=== PATIENT | female | born 1970 | race Caucasian/White ===

== ENCOUNTER 2020-12-06 14:08 | Emergency (ER) | payer OTHER ==
[2020-12-06 14:30] VITALS: BP 141/77; PULSE 95; RESP 18; TEMP 98.3
[2020-12-06] MEDS ORDERED: AMOXICILLIN 875 MG TAB PO STA (15:09)
--- NOTE | 2020-12-06 15:31 | ED ---
ENT HPI - General Chief complaint: ENT Stated complaint: Sore throat Time Seen by Provider: 12/06/20 14:40 Source: patient Mode of arrival: ambulatory Limitations: no limitations - History of Present Illness Initial comments: 50-year-old female with history of strep pharyngitis presents to emergency with a chief complaint of strep throat. Patient reports symptoms been on for the past several days and she noticed white patches on her tonsils. Patient reports this feels occurred typical strep pharyngitis. She denies any cough with report feeling chilly but did not obtain an temperature. She reports odynophagia but denies any dysphagia. Does report a large lymph nodes but denies significant seven-day regular or submental swelling. Denies chest pain shortness of breath. - Related Data Previous Rx's Medication Instructions Recorded Amoxicillin 875 mg PO Q12HR #20 tablet 12/06/20 Allergies Allergy/AdvReac Type Severity Reaction Status Date / Time acetaminophen Allergy Unknown Verified 12/06/20 14:30 [From Darvocet-N] codeine Allergy Unknown Verified 12/06/20 14:30 ofloxacin [From Floxin] Allergy Unknown Verified 12/06/20 14:30 propoxyphene Allergy Unknown Verified 12/06/20 14:30 [From Darvocet-N] Review of Systems ROS Statement: Those systems with pertinent positive or pertinent negative responses have been documented in the HPI. ROS Other: All systems not noted in ROS Statement are negative. Past Medical History Past Medical History: Asthma History of Any Multi-Drug Resistant Organisms: None Reported Past Surgical History: Cholecystectomy Past Psychological History: Depression Smoking Status: Current every day smoker Past Alcohol Use History: None Reported Past Drug Use History: None Reported General Exam Limitations: no limitations General appearance: alert, in no apparent distress Head exam: Present: atraumatic, normocephalic, normal inspection Eye exam: Present: normal appearance, PERRL, EOMI Pupils: Present: normal accommodation ENT exam: Present: normal exam, mucous membranes moist, TM's normal bilaterally, normal external ear exam. Absent: normal oropharynx (Bilateral tonsillar exudates. Uvula midline. No signs of a peritonsillar abscess.) Neck exam: Present: normal inspection, full ROM, lymphadenopathy (Anterior cervical bilaterally). Absent: tenderness Respiratory exam: Present: normal lung sounds bilaterally. Absent: respiratory distress, wheezes, rales Cardiovascular Exam: Present: regular rate, normal rhythm, normal heart sounds. Absent: systolic murmur Extremities exam: Present: normal inspection, full ROM, normal capillary refill. Absent: tenderness Back exam: Present: normal inspection, full ROM. Absent: tenderness, CVA tenderness (R), CVA tenderness (L) Neurological exam: Present: alert, oriented X3 Psychiatric exam: Present: normal affect, normal mood Skin exam: Present: warm, dry, intact, normal color Course Vital Signs 12/06/20 14:27 Temperature 98.3 F Pulse Rate 95 Respiratory 18 Rate Blood Pressure 141/77 O2 Sat by Pulse 98 Oximetry Medical Decision Making - Medical Decision Making 50-year-old female history of strep pharyngitis present to the emergency department with a chief complaint of strep throat. Physical examination, bilateral enlarged tonsils. No cough but chills. Anterior cervical lymph nodes. Rapid strep negative. We'll treat based on clinical suspicion. Gave amoxicillin here. Will be discharged with 10 day course of amoxicillin. Return parameters discussed the patient was attending and agreeable. Case discussed with - Lab Data Lab Results 12/06/20 Range/Units 15:27 Group A Strep Rapid Negative (Negative) Disposition Clinical Impression: Pharyngitis Disposition: HOME SELF-CARE Condition: Stable Instructions (If sedation given, give patient instructions): Pharyngitis (ED) Additional Instructions: take prescribed medication as directed. Follow-up with primary care physician. Return to emergency department if symptoms worsen. Prescriptions: Amoxicillin 875 mg PO Q12HR #20 tablet Is patient prescribed a controlled substance at d/c from ED?: No Referrals: Yuliya Wong MD [Primary Care Provider] - 1-2 days Time of Disposition: 15:48
== END 2020-12-06 16:00 | disposition home or self-care (01) ==
LOC: EC 14:08
DX: J02.9 Acute pharyngitis, unspecified (principal); J45.909 Unspecified asthma, uncomplicated; F32.9 Major depressive disorder, single episode, unspecified; F17.200 Nicotine dependence, unspecified, uncomplicated; Z79.2 Long term (current) use of antibiotics
CPT/HCPCS: 87081; 87430; 99283

== ENCOUNTER 2021-12-02 08:32 | Emergency (ER) | payer OTHER ==
[2021-12-02 08:41] VITALS: RESP 18; TEMP 98
[2021-12-02] MEDS ORDERED: DIPH,PERTUS(ACELL)TETVAC-LF 0.5 ML VIAL IM ONE (08:58)
--- NOTE | 2021-12-02 09:04 | ED ---
Wound/Laceration HPI - General Chief Complaint: Wound/Laceration Stated Complaint: thumb injury-[facility] Time Seen by Provider: 12/02/21 09:00 Source: patient, RN notes reviewed, old records reviewed Mode of arrival: ambulatory Limitations: no limitations - History of Present Illness Initial Comments: This is a well-appearing 51-year-old female that presents to the emergency room after he accidentally cutting the tip of her left thumb at work with a knife. Patient states her tetanus shot is not up-to-date. Bleeding is controlled and she has full range of motion. -: hour(s) (at 0640) Extremity Location: Left: Hand (tip of left thumb) Place: work Patient Tetanus UTD: No Context: accidental, sharp object use Associated Symptoms: none Treatments Prior to Arrival: bandage - Related Data Previous Rx's Medication Instructions Recorded Amoxicillin 875 mg PO Q12HR #20 tablet 12/06/20 Allergies Allergy/AdvReac Type Severity Reaction Status Date / Time acetaminophen Allergy Unknown Verified 12/02/21 08:41 [From Darvocet-N] codeine Allergy Unknown Verified 12/02/21 08:41 ofloxacin [From Floxin] Allergy Unknown Verified 12/02/21 08:41 propoxyphene Allergy Unknown Verified 12/02/21 08:41 [From Darvocet-N] Review of Systems ROS Statement: Those systems with pertinent positive or pertinent negative responses have been documented in the HPI. ROS Other: All systems not noted in ROS Statement are negative. Past Medical History Past Medical History: Asthma History of Any Multi-Drug Resistant Organisms: None Reported Past Surgical History: Cholecystectomy, Orthopedic Surgery Past Psychological History: Depression Smoking Status: Current every day smoker Past Alcohol Use History: None Reported Past Drug Use History: None Reported General Exam Limitations: no limitations General appearance: alert, in no apparent distress Respiratory exam: Absent: respiratory distress, accessory muscle use Cardiovascular Exam: Present: regular rate Left Hand Wrist exam: Present: full ROM, tenderness, laceration (Tip of the left thumb, superficial flap avulstion 0.5cm , no active bleeding). Absent: swelling Vascular: Present: normal capillary refill Neurological exam: Present: alert, oriented X3 Psychiatric exam: Present: normal affect, normal mood Skin exam: Present: warm, dry, normal color. Absent: cyanosis, diaphoretic, petechiae, pallor Course Vital Signs 12/02/21 08:39 Temperature 98 F Pulse Rate 79 Respiratory 18 Rate Blood Pressure 129/90 O2 Sat by Pulse 97 Oximetry Medical Decision Making - Medical Decision Making Wound was irrigated, flap glued down with exofin dermal glue. Tetanus shot was updated I did explain to her that the flap of skin may dry up and fall off. She was instructed to keep the wound clean and dry not to use any lotions or ointments on the glue. Patient instructed to return with any new or concerning symptoms including signs of infection, redness or fevers or drainage. Disposition Clinical Impression: Laceration Disposition: HOME SELF-CARE Condition: Good Instructions (If sedation given, give patient instructions): Finger Laceration (ED) Additional Instructions: Keep wound clean and dry. Return if any new or concerning symptoms including signs of infection, fever, redness or increased pain. Is patient prescribed a controlled substance at d/c from ED?: No Referrals: Yuliya Wong MD [Primary Care Provider] - 1-2 days Time of Disposition: 09:58
[2021-12-02] MEDS ORDERED: TOPICAL SKIN ADHESIVE 1 EACH AMP TOPICAL ONE (09:23)
[2021-12-02 10:35] VITALS: BP 130/88; PULSE 80
== END 2021-12-02 10:30 | disposition home or self-care (01) ==
LOC: EC 08:32
DX: S61.011A Laceration without foreign body of right thumb without damage to nail, initial encounter (principal); J45.909 Unspecified asthma, uncomplicated; F17.200 Nicotine dependence, unspecified, uncomplicated; Z88.6 Allergy status to analgesic agent; Z88.5 Allergy status to narcotic agent; Z88.1 Allergy status to other antibiotic agents; W26.8XXA Contact with other sharp object(s), not elsewhere classified, initial encounter
CPT/HCPCS: 90471; 90715; 99283

== ENCOUNTER → 2022-10-31 | Outpatient (CLI) | payer OTHER ==
--- NOTE | 2022-10-31 09:48 | XR ---
EXAMINATION TYPE: XR hand complete bilateral DATE OF EXAM: 10/31/2022 CLINICAL HISTORY: pain TECHNIQUE: Frontal, lateral and oblique images of the right hand are obtained. COMPARISON: None. FINDINGS: There is no acute fracture/dislocation evident. The joint spaces appear within normal limi ts. The overlying soft tissue appears unremarkable. IMPRESSION: There is no acute fracture or dislocation ICD 10 NO FRACTURE, INITIAL EVALUATION EXAMINATION TYPE: XR hand complete bilateral DATE OF EXAM: 10/31/2022 CLINICAL HISTORY: pain TECHNIQUE: Frontal, lateral and oblique images of the left hand are obtained. COMPARISON: None. FINDINGS: There is no acute fracture/dislocation evident. The joint spaces appear within normal limi ts. The overlying soft tissue appears unremarkable. IMPRESSION: There is no acute fracture or dislocation. ICD 10 NO FRACTURE, INITIAL EVALUATION
== END | disposition home or self-care (01) ==
LOC: RADXRMAIN 08:25
PROVIDERS: ATTEND Family Medicine
DX: M25.541 Pain in joints of right hand (principal); M25.542 Pain in joints of left hand

== ENCOUNTER → 2023-04-09 | Outpatient (CLI) | payer OTHER ==
[2023-04-09 17:54] LABS: Basophils # (A) 0.03 X 10*3/uL (0.00-0.10); Basophils % (A) 0.3 %; Eosinophils % (A) 0.8 %; HCT 46.6 % (37.2-46.3); Lymphocytes # (A) 2.49 X 10*3/uL (0.90-5.00); Lymphocytes % (A) 20.9 %; MCH 29.9 pg (27.0-32.0); MCHC 32.2 d/dL (32.0-37.0); MCV 92.8 FL (80.0-97.0); Mean Platelet Volume 12.1 FL (9.5-12.2); NRBC Per 100 WBC 0 X 10*3/uL (0.00-0.01); Neutrophils # (A) 8.64 X 10*3/uL (1.80-7.70); Neutrophils % (A) 72.5 %; Platelet Count 218 X 10*3/uL (140-440); RBC 5.02 X 10*6/uL (4.10-5.20); RDW 14.5 % (11.5-14.5); WBC 11.92 X 10*3/uL (4.50-10.00)
[2023-04-09 18:12] LABS: Calcium 9.4 mg/dL (8.7-10.3); Carbon Dioxide 29.8 mmol/L (21.6-31.8); Chloride 102 mmol/L (96-109); Glucose 106 mg/dL (70-110); Potassium 3.4 mmol/L (3.5-5.5); Sodium 143 mmol/L (135-145)
== END | disposition home or self-care (01) ==
LOC: LABWHC1 09:28
PROVIDERS: ATTEND Orthopaedic Surgery Hand Surgery
DX: Z01.812 Encounter for preprocedural laboratory examination (principal); G56.02 Carpal tunnel syndrome, left upper limb
CPT/HCPCS: 36415; 80048; 85025

== ENCOUNTER 2023-04-11 09:26 | Day surgery (SDC) | payer OTHER ==
[2023-04-09 15:30] VITALS: BMI 37.9
--- NOTE | 2023-04-10 13:45 | P.HPOR ---
History of Present Illness H&P Date: 04/10/23 Subjective: This is a 52 year old female that presents today for follow up evaluation regarding a several month history of bilateral hand paresthesias in the thumb, index, middle and ring fingers. The patient has tried PO steroids which have helped as well as bracing but only provided temorary relief. Her left side is worse than her right. Physical Examination: RUE: AIN/PIN/Radial/Ulnar/Median motor intact. Radial/Ulnar/Median SILT. 2+/4 Radial/Ulnar pulses palpated. 5/5 APB, 5/5 FDI. Negative Finkelsteins, negative CMC grind, positive Durkan's compression. LUE: AIN/PIN/Radial/Ulnar/Median motor intact. Radial/Ulnar/Median SILT. 2+/4 Radial/Ulnar pulses palpated. 5/5 APB, 5/5 FDI. Negative Finkelsteins, negative CMC grind, positive Durkan's compression. EMG/NCV: 01/01/23 demonstrates bilateral moderate carpal tunnel syndrome with Andrea Angie Anastomosis present on right side. Impression: 1.) Right carpal tunnel syndrome 2.) Left carpal tunnel syndrome Plan: Diagnosis and treatment options were discussed with the patient. The patient has failed conservative treatment and would like to pursue a left endoscopic vs open carpal tunnel release followed by a right carpal tunnel release 2 weeks later. Risks and benefits of surgery including bleeding, infection, damage to surrounding tissue, need for further surgery, possible need to convert to open procedure, residual numbness were discussed and the patient wished to go forward with surgery. CC: Yuliya Wong MD -Finn Puckett DO Orthopedic Hand/Upper Extremity Surgeon Past Medical History Past Medical History: Asthma, Diabetes Mellitus, GERD/Reflux, Rheumatoid Arthritis (RA) History of Any Multi-Drug Resistant Organisms: None Reported Past Surgical History: Cholecystectomy, Orthopedic Surgery Additional Past Surgical History / Comment(s): TARSAL TUNNEL RELEASE BILAT FEET. COLONOSCOPY Past Anesthesia/Blood Transfusion Reactions: Postoperative Nausea & Vomiting (PONV) Smoking Status: Current every day smoker - Past Family History Mother Family Medical History: No Reported History Medications and Allergies Home Medications Medication Instructions Recorded Confirmed Type Albuterol Inhaler [Ventolin Hfa 1 - 2 puff INHALATION Q6H PRN 04/09/23 04/09/23 History Inhaler] Cetirizine HCl [Zyrtec] 20 mg PO DAILY 04/09/23 04/09/23 History Dapagliflozin Propanediol [Farxiga] 5 mg PO DAILY 04/09/23 04/09/23 History Folic Acid 1 mg PO DAILY 04/09/23 04/09/23 History Liraglutide [Victoza 2-Hollis] 1.2 mg SQ DAILY 04/09/23 04/09/23 History Omeprazole 60 mg PO DAILY 04/09/23 04/09/23 History metFORMIN HCL [Glucophage] 500 mg PO DAILY 04/09/23 04/09/23 History metHOTREXate sodium [Methotrexate] 17.5 mg PO SANON 04/09/23 04/09/23 History predniSONE [Deltasone] 20 mg PO DAILY 04/09/23 04/09/23 History Allergies Allergy/AdvReac Type Severity Reaction Status Date / Time acetaminophen Allergy Unknown Verified 04/09/23 15:21 [From Darvocet-N] codeine Allergy Unknown Verified 04/09/23 15:21 ofloxacin [From Floxin] Allergy Unknown Verified 04/09/23 15:21 propoxyphene Allergy Unknown Verified 04/09/23 15:21 [From Darvocet-N] Physical Examination Osteopathic Statement: *. No significant issues noted on an osteopathic structural exam other than those noted in the History and Physical/Consult.
[~2023-04-11 09:26] MED LIST: DEXAMETHASONE SOD PHOSPHATE 4 MG/ML 1 ML VIAL IV ONE; LACTATED RINGERS 1,000 ML IV SCH; LIDOCAINE 1% (10MG/ML) FOR IV START INTRADERMA PRN; ONDANSETRON 4 MG/2 ML VIAL IVP ONE; ceFAZolin 3 GM in SODIUM CHLORIDE 0.9% 100 ML IVPB PRN; droPERidol 5 MG/2 ML VIAL IVP ONE; fentaNYL (PF) 50 MCG/ML 2 ML AMP IV PRN
[2023-04-11] MEDS ORDERED: LACTATED RINGERS 1,000 ML IV ONE (10:00)
[2023-04-11 10:12] VITALS: TEMP 97
[2023-04-11 10:23] LABS: Glucose,Whole Blood 114 mg/dL (70-110)
[2023-04-11] MEDS ORDERED: fentaNYL (PF) 50 MCG/ML 2 ML AMP ONE (11:20)
[2023-04-11] MEDS ORDERED: PROPOFOL 10 MG/ML 20 ML VIAL IV ONE (11:20)
[2023-04-11] MEDS ORDERED: MIDAZOLAM 2 MG/2 ML VIAL ONE (11:20)
[2023-04-11] MEDS ORDERED: BUPIVACAINE (PF) 0.5% 30 ML VIAL SQ ONE ×2 (11:21→11:28)
[2023-04-11] MEDS ORDERED: LIDOCAINE 2% INJ 20 MG/ML SQ ONE ×2 (11:21→11:28)
--- NOTE | 2023-04-11 11:41 | P.OP ---
Date of Procedure: 04/11/23 Preoperative Diagnosis: Left carpal tunnel syndrome Postoperative Diagnosis: Left carpal tunnel syndrome Procedure(s) Performed: Left endoscopic carpal tunnel release Anesthesia: MAC Surgeon: Finn Puckett Gamer #1: Chip Berger Estimated Blood Loss (ml): 0 Pathology: none sent Condition: stable Disposition: PACU Description of Procedure: This is a 52 year old female who presents today for a left endoscopic carpal tunnel release after having failed conservative treatment in the past. Risks and benefits of surgery were discussed with the patient including bleeding, damage to surrounding tissue, infection, need to convert to open procedure, need for further surgery as well as risks of anesthesia including pulmonary embolism and even and the patient wished to proceed with surgical intervention. The patients was seen in the pre-operative area by myself. Consent and H&P were completed and updated. The correct extremity was marked in the pre-operative area by myself and all other questions were answered. Operative Narrative: The patient was brought to the operating room by the department of anesthesia. They remained on the portable stretcher and a rolling hand table was brought to the side of the operative extremity. Pre-operative time out was performed indicating the correct patient, procedure and laterality. All in the room agreed. The patient was then drifted off to sleep by the department of anesthesia. MAC anesthesia was utilized and a 50:50 mixture of 1% Lidocaine and 0.5% bupivacaine was injected into the subcutaneous tissues of the palmar skin, 8ccs total. A nonsterile tourniquet was then applied to the operative extremity and the left upper extremity was then prepped and draped in normal sterile fashion. The operative extremity was the exsanguinated with an esmarch bandage and the tourniquet was inflated to 250mmHg. 15 blade scalpel was utilized to make a transverse incision on the palmar skin just ulnar to the palmaris longus tendon at the level of the distal wrist crease. Ragnell retractor was then placed radially and blunt dissection was performed to reveal the distal forearm fascia. This was lifted with fine Tong pick ups and Littler tenotomy scissors were then used to open the forearm fascia transversely and a double skin hook was then placed. Hamate finder was placed into the carpal tunnel and then sequential sized dilators were inserted followed by the synovial elevator to separate the flexor tenosynovium from the undersurface of the transverse carpal ligament and a washboard texture was felt. The MicroAire endoscopic carpal tunnel release system gun was the then inserted into the carpal tunnel hugging the deep portion of the transverse carpal ligament in line with the base of the ring finger. Transverse fibers of the ligament were directly visualized. Pressure was applied on the palm to reveal the distal extent of the transverse carpal ligament. The blade was then deployed and the distal half of the transverse carpal ligament was released. The scope was then brought distal again and remaining transverse fibers were incised with the blade. The proximal half of the transverse carpal ligament was then divided and again the scope was advanced distal and remaining transverse fibers were incised with the blade. The radial and ulnar leaflets were directly visualized and mobile consistent with complete release. Tenotomy scissors were then utilize d to release the remaining distal forearm fascia under direct visualization taking care to preserve the palmar cutaneous branch of the median nerve. Skin closure was performed with interrupted 4-0 Monocryl suture followed by steri strips. Sterile dressing was applied consisting of adaptic, 4x4s, Webril, and an pato bandage. Tourniquet was let down and the hand immediately was well perfused. The patient was then woken by the department of anesthesia and transferred to PACU in stable condition. Chip LUIS was present for the case in its entirety and assisted in major portions of the case and protection of vital neurovascular structures. Finn Puckett D.O. Orthopedic Hand/Upper Extremity Surgeon
[2023-04-11 12:13] VITALS: BP 115/78; PULSE 87; RESP 18
== END 2023-04-11 12:29 | disposition home or self-care (01) ==
LOC: OR 09:26
PROVIDERS: ATTEND Orthopaedic Surgery Hand Surgery
DX: G56.03 Carpal tunnel syndrome, bilateral upper limbs (principal); E11.9 Type 2 diabetes mellitus without complications; J45.909 Unspecified asthma, uncomplicated; K21.9 Gastro-esophageal reflux disease without esophagitis; M06.9 Rheumatoid arthritis, unspecified; F17.200 Nicotine dependence, unspecified, uncomplicated; Z79.84 Long term (current) use of oral hypoglycemic drugs; Z79.899 Other long term (current) drug therapy; Z79.52 Long term (current) use of systemic steroids; Z88.5 Allergy status to narcotic agent; Z88.1 Allergy status to other antibiotic agents; Z88.8 Allergy status to other drugs, medicaments and biological substances
CPT/HCPCS: 84132; 29848; J2001; J2250; J1100; J0690; J2405; J3010; J2704; J0665

== ENCOUNTER → 2023-09-04 | Outpatient (CLI) | payer OTHER ==
--- NOTE | 2023-09-11 13:02 | MM ---
Reason for Exam: Screening (asymptomatic). Last mammogram was performed 7 year(s) and 5 month(s) ago. Patient History: Menarche at age 12. First Full-Term at age 17. Perimenopausal. Last menstrual period: Risk Values: Katheryn 5 year model risk: 0.8%. NCI Lifetime model risk: 6.9%. Prior Study Comparison: 01/23/2016 Left Diagnostic Mammogram, [facility]. 04/12/2016 Bilateral Screening Mammogram, [facility]. Tissue Density: There are scattered fibroglandular densities. Findings: Analyzed By CAD. There is no suspicious group of microcalcifications or new suspicious mass. Overall Assessment: Negative, BI-RAD 1 Management: Screening Mammogram of both breasts in [address] [facility] will attempt to contact patient to return for supplemental views and ultrasound if indicated. Patient should continue monthly self-breast exams. A clinical breast exam by your physician is recommended on an annual basis. This exam should not preclude additional follow-up of suspicious palpable abnormalities. Note on Katheryn scores and lifetime risk: 1. A Katheryn score greater than 3% is considered moderate risk. If this is the case, consider specialist referral to assess eligibility for a risk reducing agent. 2. If overall lifetime risk for the development of breast cancer is 20% or higher, the patient may qualify for future screening with alternating mammogram and breast MRI. Electronically signed and approved by: Chivo Del Valle DO
== END | disposition home or self-care (01) ==
LOC: RADMAMWWP 15:47
PROVIDERS: ATTEND Family Medicine
DX: Z12.31 Encounter for screening mammogram for malignant neoplasm of breast (principal)
CPT/HCPCS: 77063; 77067

== ENCOUNTER → 2024-01-28 | Outpatient (CLI) | payer OTHER ==
--- NOTE | 2024-01-28 10:58 | CTL ---
EXAMINATION TYPE: CT Low Dose Lung DATE OF EXAM ORDERED: 01/28/2024 HISTORY: Personal history of nicotine dependence, 30 pack-year history, current smoker. Lung cancer s creening CT DLP: 91.[address] CTDI: 2.4 mGy Automated exposure control for dose reduction was used. SCREENING VISIT: First screening visit COMPARISON: None TECHNIQUE: Low dose computed tomography scan was performed through the chest at 1 mm thick sections a nd reconstructed images in multiple planes at 1 mm and [address] DIAGNOSTIC QUALITY: Satisfactory FINDINGS: Nodules: Anterior right middle lobe pleural-based 5.4 mm pulmonary nodule (series 6, image 35). LUNGS: COPD: Severity: None Fibrosis: Severity: None Lymph nodes: None Other findings: None RIGHT PLEURAL SPACE: Effusion: None Calcification: None Thickening: None Pneumothorax: None LEFT PLEURAL SPACE: Effusion: None Calcification: None Thickening: None Pneumothorax: None HEART: Heart Size: Normal Coronary Calcification: None Pericardial Effusion: None OTHER FINDINGS: Upper abdomen: Post cholecystectomy changes. Bony thorax: No acute process. Mild multilevel degenerative disc disease. Supraclavicular region: None Other: None IMPRESSION: Right middle lobe 5.[address] LUNG RAD AND CT CHEST RECOMMENDATION: Lung-Rad 2 Benign Appearance or Behavior: Continue annual sc reening with LDCT in 12 months. S Modifier (other clinically significant findings): None
== END | disposition home or self-care (01) ==
LOC: RADCTMAIN 10:21
PROVIDERS: ATTEND Family Medicine
DX: Z12.2 Encounter for screening for malignant neoplasm of respiratory organs (principal); R91.1 Solitary pulmonary nodule; F17.210 Nicotine dependence, cigarettes, uncomplicated
CPT/HCPCS: 71271